=== PATIENT | male | born 1990 | race Two or more races ===

== ENCOUNTER → 2017-02-04 | Day surgery (SDC) | payer OTHER ==
[~2017-02-04] MED LIST: HYDROmorphone 1 MG/ML Syringe IVPUSH ONE; HYDROmorphone 1 MG/ML Syringe ONE; Ketamine 500 mg/10 ML MDV ONE; Lactated Ringers 1,000 ML IV SCH; Lidocaine 1% 4 ML ONE; Midazolam 1 MG/ML 2 ML SDV ONE; Ondansetron 4 MG/2 ML SDV IVPUSH ONE; Ondansetron 4 MG/2 ML SDV IVPUSH PRN; Ondansetron 4 MG/2 ML SDV ONE; Propofol 200 MG/20 ML SDV ONE; Sodium Chloride 0.9% 10 ML Syringe FLUSH PRN; Succinylcholine 200 MG/10 ML MDV ONE; fentaNYL 100 MCG/2 ML SDV IVPUSH PRN; fentaNYL 250 MCG/5 ML SDV ONE
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
--- NOTE | 2017-02-04 14:36 | PCM.PREANE ---
Preanesthetic Assessment - Anesthesia/Transfusion/Family Hx Anesthesia History: No Prior Anesthesia Family History of Anesthesia Reaction: No Transfusion History: No Prior Transfusion(s) - Review of Systems General: No Symptoms Pulmonary: No Symptoms Cardiovascular: No Symptoms Gastrointestinal: No Symptoms Neurological: No Symptoms Other: Reports: None - Physical Assessment NPO Status Date: 02/04/17 NPO Status Time: 12:30 (rice and meat) O2 Sat by Pulse Oximetry: 100 Vital Signs: Last Vital Signs Temp 98.3 F 02/04/17 13:34 Pulse 78 02/04/17 13:34 Resp BP 152/95 H 02/04/17 13:34 Pulse Ox 100 02/04/17 13:34 Height: 6 ft 1 in Weight: 104.326 kg ASA Class: 2E Mental Status: Alert & Oriented x3 Airway Class: Mallampati = 1 Dentition: Reports: Caries Thyro-Mental Finger Breadths: 3 Mouth Opening Finger Breadths: 3 ROM/Head Extension: Full Lungs: Clear to Auscultation, Normal Respiratory Effort Cardiovascular: Regular Rate, Regular Rhythm - Allergies Allergies/Adverse Reactions: Allergies Allergy/AdvReac Type Severity Reaction Status Date / Time No Known Allergies Allergy Verified 02/04/17 13:34 - Blood Blood Available: No - Acknowledgements Anesthesia Type Planned: MAC Pt an Appropriate Candidate for the Planned Anesthesia: Yes Alternatives and Risks of Anesthesia Discussed w Pt/Guardian: Yes Pt/Guardian Understands and Agrees with Anesthesia Plan: Yes PreAnesthesia Questionnaire - Past Health History Medical/Surgical History: Denies Medical/Surgical History Cardiovascular History: Reports: None Respiratory History: Reports: None - SUBSTANCE USE Smoking Status *Q: Current Every Day Smoker Tobacco Use Within Last Twelve Months: No Second Hand Smoke Exposure: Yes Days Per Week of Alcohol Use: 1 Recreational Drug Use History: No - HOME MEDS Home Medications: Home Meds . [No Known Home Meds] 02/04/17 [History] - CURRENT (IN HOUSE) MEDS Current Meds: Current Medications Lactated Ringer's (Ringers, Lactated) 1,000 mls @ 125 mls/hr IV ASDIRECTED LARA Sodium Chloride (Saline Flush) 10 ml FLUSH ASDIRECTED PRN PRN Reason: Keep Vein Open Last Admin: 02/04/17 13:42 Dose: 10 ml Discontinued Medications Hydromorphone HCl (Dilaudid) 1 mg IVPUSH ONETIME ONE Stop: 02/04/17 13:36 Last Admin: 02/04/17 13:39 Dose: 1 mg Hydromorphone HCl (Dilaudid) Confirm Administered Dose 1 mg .ROUTE .STK-MED ONE Stop: 02/04/17 13:40 Last Admin: 02/04/17 13:41 Dose: Not Given Ondansetron HCl (Zofran) 4 mg IVPUSH ONETIME ONE Stop: 02/04/17 13:36 Last Admin: 02/04/17 13:40 Dose: 4 mg
--- NOTE | 2017-02-04 14:58 | CR ---
Right ankle: Four views of the right ankle were obtained. Dislocation is identified within the mid foot with the talus being dislocated laterally in relation to the navicular bone and other tarsal bones. Small fracture is identified posteriorly off the superior calcaneus posterior to the subtalar joint. No other definite fracture is seen at this time. Impression: 1. Dislocation within the mid foot. Small fracture off the calcaneus posterior to the subtalar joint. Diagnostic code #5
--- NOTE | 2017-02-04 14:58 | CR ---
Right foot: Four views of the right foot were obtained. Dislocation is again seen at the midfoot level. Talus is dislocated lateral to the navicular bone. Small fracture fragment again seen posterior to the subtalar joint within the calcaneus. No additional abnormality is seen. Impression: 1. Midfoot dislocation. Small calcaneal fracture is again seen. Diagnostic code #5
--- NOTE | 2017-02-04 16:06 | PCM.POSTAN ---
POST ANESTHESIA ASSESSMENT - MENTAL STATUS Mental Status: Alert, Oriented - VITAL SIGNS Pulse Rate: 96 SaO2: 99 Resp Rate: 11 Blood Pressure: 136/93 Temperature: 98.8 F - RESPIRATORY Respiratory Status: Respiratory Rate WNL, Airway Patent, O2 Saturation Stable, Supplemental Oxygen - CARDIOVASCULAR CV Status: Pulse Rate WNL, Blood Pressure Stable - GASTROINTESTINAL GI Status: No Symptoms - PAIN Pain Score: 0 - POST OP HYDRATION Hydration Status: Adequate & Stable
--- NOTE | 2017-02-04 17:06 | CT ---
CT right foot Technique: Multiple axial sections through the right foot were obtained. Comparison: Previous studies performed earlier on the same day. Findings: Fracture is identified off the medial and posterior talus. Fracture fragment measures about 1.3 cm in size with greatest displacement being about 2.5. Bony density is seen off the anterior and dorsal talus felt compatible with an additional small fracture fragment, uncertain if this is due to old injury or is acute. This measures about 8 mm in size. No additional fracture is seen bony structures are anatomic in alignment. Diffuse soft tissue swelling is seen. Impression: 1. Fracture off the medial and posterior talus as described above. 2. Small bony density off the anterior and dorsal talus, uncertain if this is due to old injury or is acute. 3. Diffuse soft tissue swelling. Diagnostic code #3
--- NOTE | 2017-02-04 18:20 | CR ---
Right ankle: Two fluoroscopic spot views were obtained of the right ankle. Study obtained utilizing C-arm device. Bony structures appear anatomic in alignment as seen on this exam. Fluoroscopy time given as 3.6 seconds. Impression: 1. Findings as noted above. Diagnostic code #1
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
--- NOTE | 2017-02-13 07:50 | OR ---
DATE OF OPERATION: 02/04/2017 SURGEON: Hugh Brand MD OPERATION PERFORMED: Closed reduction with splinting of right subtalar fracture dislocation. PREOPERATIVE DIAGNOSIS: Right medial subtalar fracture dislocation. POSTOPERATIVE DIAGNOSIS: Right medial subtalar fracture dislocation. ANESTHESIA: General anesthesia . BLENDER / COOK: None. ANESTHESIOLOGIST: Allan Carr CRNA COMPLICATIONS: None. CONDITION: Stable. ESTIMATED BLOOD LOSS: Not applicable. DESCRIPTION OF PROCEDURE: The patient was identified in the emergency department. Proper site was marked and identified. Consent was obtained. At this time, the patient was brought back to the operating theater where after adequate anesthesia, a time-out was performed. The patient did not receive antibiotics as it is not open procedure. At this time, a closed reduction maneuver with hyper plantar flexion, inversion and then medial to lateral pressure showed reduction of the subtalar fracture dislocation. C-arm fluoroscopy confirmed this. At this time, the patient was placed in a posterior slab and a sugar-tong splint and was sent to PACU in stable condition. MMODAL /[id number]
== END | disposition home or self-care (01) ==
LOC: JD.ED 13:31 → JD.SDS 15:03
PROVIDERS: ATTEND Orthopaedic Surgery
DX: S92.191A Other fracture of right talus, initial encounter for closed fracture (principal); W18.42XA Slipping, tripping and stumbling without falling due to stepping into hole or opening, initial encounter; F17.210 Nicotine dependence, cigarettes, uncomplicated; Z79.899 Other long term (current) drug therapy
CPT/HCPCS: 28435; 73610; 73630; 73700; 76000; 96374; 96375; 99285; J0330; J1170; J2250; J2405; J3010; J7050; J7120; 01462; 99284; J2704